=== PATIENT | male | born 1990 | race Caucasian/White ===

== ENCOUNTER 2019-02-18 20:34 | Emergency (ER) | payer MEDICAID ==
[~2019-02-18] VITALS: Ht 185.4 cm; Wt 118.0 kg
[2019-02-18] MEDS ORDERED: IBUPROFEN 600MG TABLET PO ONE (22:15)
[2019-02-19 00:38] VITALS: BP 119/75
== END 2019-02-19 00:39 | disposition home or self-care (01) ==
LOC: ER 20:34
DX: S93.505A Unspecified sprain of left lesser toe(s), initial encounter (principal); W01.0XXA Fall on same level from slipping, tripping and stumbling without subsequent striking against object, initial encounter; Y93.89 Activity, other specified; Y92.89 Other specified places as the place of occurrence of the external cause; Y99.8 Other external cause status; F12.10 Cannabis abuse, uncomplicated
CPT/HCPCS: 73660; 99283

== ENCOUNTER 2019-05-10 10:29 | Emergency (ER) | payer MEDICAID ==
[~2019-05-10] VITALS: Ht 182.9 cm; Wt 118.0 kg
[2019-05-10 13:11] LABS: CLARITY URINE CLEAR (CLEAR); COLOR URINE YELLOW (YELLOW); KETONES URINE NEGATIVE (NEGATIVE); LEUKOCYTE ESTERASE URINE NEGATIVE (NEGATIVE); NITRITE URINE NEGATIVE (NEGATIVE); OCCULT BLOOD URINE NEGATIVE (NEGATIVE); PROTEIN URINE NEGATIVE (NEGATIVE); SPECIFIC GRAVITY URINE 1.026 (1.005-1.030); UROBILINOGEN URINE 0.2 E.U./dL (0.2-1.0)
[2019-05-10 13:40] VITALS: BP 154/88
== END 2019-05-10 13:41 | disposition home or self-care (01) ==
LOC: ER 12:01
DX: R30.0 Dysuria (principal); F12.10 Cannabis abuse, uncomplicated
CPT/HCPCS: 81003; 99283